=== PATIENT | male | born 1980 | race Caucasian/White ===

== ENCOUNTER 2023-04-16 13:57 | Emergency (ER) | payer OTHER ==
[2023-04-16 14:08] VITALS: BP 137/78
[2023-04-16] MEDS ORDERED: KETOROLAC 60 MG/2 ML VIAL IM STA (14:17)
[2023-04-16] MEDS ORDERED: DEXAMETHASONE 10 MG/ML VIAL IM STA (14:17)
--- NOTE | 2023-04-16 14:18 | ED Physician Documentation ---
PD HPI URI - Stated complaint Stated Complaint: SORE THROAT - Chief complaint Chief Complaint: Heent - History obtained from History obtained from: Patient (Sore throat since yesterday morning making it difficult to talk. No fevers. Mild cough. No runny nose.) PD PAST MEDICAL HISTORY - Present Medications Home Medications: Ambulatory Orders Medication Instructions Recorded Confirmed No Known Home Medications 04/16/23 04/16/23 - Allergies Allergies/Adverse Reactions: Allergies Allergy/AdvReac Type Severity Reaction Status Date / Time No Known Drug Allergies Allergy Verified 04/16/23 14:07 PD ED PE NORMAL - Vitals Vital signs reviewed: Yes - General General: Alert and oriented X 3, No acute distress - HEENT HEENT: Other (Exudative tonsillitis) - Neck Neck: Supple, no meningeal sign, No bony TTP - Neuro Neuro: Alert and oriented X 3, Normal speech Results - Vitals Vitals: Vital Signs - 24 hr 04/16/23 14:04 Temperature 35.9 C L Heart Rate 92 Respiratory 18 Rate Blood Pressure 137/78 H O2 Saturation 100 Oxygen O2 Source Room air - Labs Labs: Laboratory Tests 04/16/23 14:10 Group A Strep Rapid POSITIVE H PD Medical Decision Making - ED course ED course: 42-year-old gentleman with strep throat. Treatment in the emergency department consisted of IM Toradol with Decadron and long-acting penicillin after discussion of options. Departure - Departure Disposition: 01 Home, Self Care Clinical Impression: Strep pharyngitis Condition: Good Record reviewed to determine appropriate education?: Yes Instructions: ED Strep Pharyngitis Conf Comments: You were seen today for strep throat. You have received a full course of intramuscular penicillin, you will not need a prescription. You should improve over the next few days. You are contagious for the next 24 hours or so. Return if worse. Make sure your PCM knows about this issue.
[2023-04-16 14:19] LABS: RAPID STREP SCREEN POSITIVE (Negative)
[2023-04-16] MEDS ORDERED: PENICILLIN G BENZATHINE 600,000 UNIT/ML SYRINGE IM STA (14:22)
== END 2023-04-16 14:57 | disposition home or self-care (01) ==
LOC: ED 13:57
DX: J02.0 Streptococcal pharyngitis (principal)
CPT/HCPCS: 87430; 96372; 99283